=== PATIENT | male | born 1960 | race Caucasian/White ===

== ENCOUNTER 2022-09-13 10:41 | Day surgery (SDC) | payer OTHER, SELFPAY ==
--- NOTE | 2022-09-09 12:17 | P.CONAN_ITS ---
Documented by User: Nydia Koenig NP 09/09/22 12:19 HPI - Anesthesia Eval Consult details Narrative: 62yo M for Colonoscopy [facility] Past Medical History Medical History (Updated 09/09/22 @ 12:05 by Naida Garcia RN) Colon polyps Psoriasis Tubular adenoma Surgical History Surgical History (Updated 09/09/22 @ 12:05 by Naida Garcia RN) H/O arthroscopy of left knee H/O colonoscopy Social History Social History Patient Tobacco Use Status: Never used Tobacco Use of substances other than those prescribed or required for medical reasons: No Are you DNR?: No Advance Directives: No Advance Directives Information Provided: Yes Meds Allergies Allergy/AdvReac Type Severity Reaction Status Date / Time No Known Allergies Allergy Verified 09/09/22 12:03 Home Medications Medication Instructions Recorded Confirmed Last Taken Type No Known Home Meds 09/09/22 09/09/22 Unknown History Exam Exam Date and Time: September 09, 2022 121 Assessment and Plan Assessment Anesthesia Assessment: Chart Reviewed Documented by User: Coleman Santa MD 09/13/22 15:57 [facility] Past Medical History Medical History (Updated 09/09/22 @ 12:05 by Naida Garcia RN) Colon polyps Psoriasis Tubular adenoma Family History Family history of problems with anesthesia: No Surgical History Surgical History (Updated 09/09/22 @ 12:05 by Naida Garcia RN) H/O arthroscopy of left knee H/O colonoscopy History of Problems with Anesthesia: No Social History Social History Patient Tobacco Use Status: Never used Tobacco Use of substances other than those prescribed or required for medical reasons: No Are you DNR?: No Advance Directives: No Advance Directives Information Provided: Yes Meds Allergies Allergy/AdvReac Type Severity Reaction Status Date / Time No Known Allergies Allergy Verified 09/09/22 12:03 Home Medications Medication Instructions Recorded Confirmed Last Taken Type No Known Home Meds 09/09/22 09/09/22 Unknown History Exam Airway Mallampati Class: III TM Dist: >3cm Neck ROM: Full Loose/Missing/Broken Teeth: Yes (Poor dentition ) Heart: S1,S2 Lungs: b/l breath sounds Assessment and Plan Assessment Anesthesia Assessment: Anesthesia Plan Discussed Final Anesthetic Review Family History of Problems with Anesthesia: No History of Problems with Anesthesia: No NPO: Yes ASA Class: II Final Preanesthetic Review: Meds/Allgs Chart Reviewed, Consent Obtained/Reviewed and Anes Risks/Benef Reviewed Patient Risk: Intermediate Procedure Risk: Intermediate Anesthetic Plan Anesthetic Plan: MAC: Disposition: Standard PACU
[2022-09-13 11:22] VITALS: BP 147/92; PULSE 88; RESP 18; TEMP 36.3; O2SAT 97; BMI 34.3
[2022-09-13] MEDS: Lactated Ringers 1,000 ML 100 ML IVCONT (11:45)
--- NOTE | 2022-09-13 12:09 | MHC.SHP ---
Pre-Procedural Eval Section A Date of Service: 09/13/22 The patient is an INPATIENT: No Changes since office visit: No Cold of Flu in the past 2 weeks, No New Medical Problems, No Changes in Medication and No Patient answered all questions The History & Physical has been completed within 30 days and I have reviewed it.: No Section B Chief Complaint: Personal history of colonic polyps,screening Allergies: Allergies Allergy/AdvReac Type Severity Reaction Status Date / Time No Known Allergies Allergy Verified 09/09/22 12:03 Plan I have reviewed the history and physical and performed a pertinent physical examination on my patient. No changes have occurred unless specified. Time Spent With Patient Time: Total time managing care of this patient today ____ minutes.
[2022-09-13 12:38] VITALS: BP 100/59; PULSE 67; RESP 16; TEMP 36.1; O2SAT 96
[2022-09-13 12:53] VITALS: BP 112/66; PULSE 62; RESP 16; TEMP 36.3; O2SAT 97
--- NOTE | 2022-09-13 12:59 | PM.OP ---
Brief Operative Note Date of Service: 09/13/22 Pre-op diagnosis: screening Post-op diagnosis: same Procedure: colonoscopy Surgeon: Rah Casillas Anesthesia: MAC Was an [employer] used for this Procedure?: No Estimated blood loss (mL): 2 Pathology: other Condition: stable Disposition: PACU
[2022-09-13 13:16] VITALS: BP 105/69; PULSE 55; RESP 16; O2SAT 97
--- NOTE | 2022-09-13 20:35 | OP_ITS ---
SURGEON: Rah Casillas MD INDICATIONS: Colon cancer screening and prior history of adenomatous colon polyps. PREOPERATIVE DIAGNOSIS: POSTOPERATIVE DIAGNOSIS: PROCEDURE PERFORMED: Colonoscopy to the terminal ileum with snare polypectomy. ESTIMATED BLOOD LOSS: COMPLICATIONS: ANESTHESIA: Monitored anesthesia care. ASSISTANTS: SPECIMENS: DESCRIPTION OF PROCEDURE: Date: 09/13/22. A History and Physical was performed. The risks and benefits of the procedure were explained to the patient, and informed consent was obtained. The patient was placed in the left lateral decubitus position. A digital rectal exam was performed and was found to be normal. The Olympus pediatric video colonoscope was introduced into the rectum and advanced to the cecum without difficulty. The cecum was identified by transillumination, palpation, and identification of the ileocecal valve. Examination was performed. The scope was removed. He tolerated the procedure well and was returned to the recovery area in stable condition. FINDINGS: The terminal ileum was normal. The visualized colonic mucosa was normal. The quality of prep was good. In the right colon, was an 8 mm polyp, which was piecemeal resected with a hot snare. No other polyps were identified. There was mild sigmoid diverticulosis. Retroflexed examination showed small internal hemorrhoids. IMPRESSION: Colon polyp. RECOMMENDATION: Follow up with the biopsy results. MD KEVIN Ayers/BRIANA / [id number] MTDD
== END 2022-09-13 13:37 | disposition home or self-care (01) ==
PROVIDERS: Visit Provider Internal Medicine Gastroenterology
PROC: 0DJD8ZZ Inspection of Lower Intestinal Tract, Via Natural or Artificial Opening Endoscopic (ICD-10-PCS; CPT 45378; principal; 2022-09-13 12:00)
DX: Z12.11 Encounter for screening for malignant neoplasm of colon (principal); Z86.010 Personal history of colon polyps; D12.2 Benign neoplasm of ascending colon; K57.30 Diverticulosis of large intestine without perforation or abscess without bleeding; K64.8 Other hemorrhoids; L40.9 Psoriasis, unspecified
CPT/HCPCS: 45385; 88305